=== PATIENT | male | born 1975 | race Caucasian/White ===

== ENCOUNTER 2017-10-14 20:30 | Emergency (ER) | payer OTHER ==
[~2017-10-14] VITALS: Ht 182.9 cm; Wt 115.0 kg
[~2017-10-14 20:30] MED LIST: ALBUAER19 INH; DEXT30TA7 PO; IBUP-1050 PO
[2017-10-14 20:32] VITALS: BP 152/97; PULSE 96; TEMP 36.9; O2SAT 95; Ht 182.9 cm; Wt 115.0 kg
[2017-10-14] MEDS ORDERED: ALBUTEROL HFA 8 GM INHALER INH STA (20:41)
[2017-10-14] MEDS ORDERED: VNTHFA/IN INH (20:50)
--- NOTE | 2017-10-14 23:16 | EMERGENCY ROOM VISIT NOTE ---
History Report prepared by Cristóbal: Rosanna Chawla Under the Supervision of: Dr. Johnnie Saba M.D. First contact with patient: 20:41 Chief Complaint: MEDICATION REFILL REQUEST Stated Complaint: TROUBLE BREATHING, TIGHT CHEST History of Present Illness The patient is a 42 year old male who presents to the Emergency Room with complaints of an episode of a medication refill request prior to arrival. The patient states that he has a history of asthma. He reports that he has been having asthma attacks and has used all of his inhaler. He states that he called [facility] this morning and they didn't sign the paper to send to the pharmacy so he came here. He reports that he didn't know what else to do. The patient denies feeling short of breath currently. Source of History: patient Onset: prior to arrival Position: other (global) Quality: other (medication refill) Timing: other (episode) Associated Symptoms: No SOB Review of Systems See HPI for pertinent positives & negatives. A total of 10 systems reviewed and were otherwise negative. Past Medical & Surgical Medical Problems: (1) Asthma Family History Patient reports no known family medical history. Social History Smoking Status: Current Every Day Smoker Alcohol Use: none Drug Use: none Occupation Status: employed Current/Historical Medications Scheduled Albuterol Hfa (Ventolin Hfa), 2-4 PUFFS INH Q6H Albuterol Inhaler (Ventolin Inhaler), 2 PUFFS INH Q4HR PRN Scheduled PRN Dextromethorphan-Guaifenesin (Mucinex Dm), 1 TAB PO Q12 PRN for Cough Ibuprofen (Advil), 400 MG PO Q6 PRN for Headache or Pain Allergies Coded Allergies: Latex1 -Allergic Contact Dermititis (Verified Allergy, Unknown, SWELLING AND REDNESS TO AREA TOUCHED, 06/18/15) Penicillins (Verified Allergy, Unknown, 06/18/15) Physical Exam Vital Signs Date Time Temp Pulse Resp B/P (MAP) Pulse Ox O2 Delivery O2 Flow Rate FiO2 10/14/17 20:32 36.9 96 18 152/97 95 Room Air Physical Exam GENERAL: Awake, alert, well-appearing, in no acute distress HENT: Normocephalic, atraumatic. Oropharynx unremarkable. EYES: Normal conjunctiva. Sclera non-icteric. NECK: Supple. No nuchal rigidity. FROM. No JVD. RESPIRATORY: Slight expiratory wheeze on the right. CARDIAC: Regular rate, normal rhythm. Extremities warm and well perfused. Pulses equal. ABDOMEN: Soft, non-distended. No tenderness to palpation. No rebound or guarding. No masses. RECTAL: Deferred. MUSCULOSKELETAL: Chest examination reveals no tenderness. The back is symmetrical on inspection without obvious abnormality. There is no CVA tenderness to palpation. No joint edema. LOWER EXTREMITIES: Calves are equal size bilaterally and non-tender. No edema. No discoloration. NEURO: Normal sensorium. No sensory or motor deficits noted. SKIN: No rash or jaundice noted. Medical Decision & Procedures Medications Administered Medications (Trade) Dose Ordered Sig/Jules Route Start Time Stop Time Status Last Admin Dose Admin Albuterol (Ventolin Hfa Inhaler) 2 puffs NOW STAT INH 10/14/17 20:41 10/14/17 20:43 DC 10/14/17 20:41 2 PUFFS ED Course 2044: Past medical records reviewed. The patient was evaluated in room D6. A complete history and physical examination was performed. I discussed results and treatment plan with the patient. He verbalizes agreement and understanding. The patient is ready for discharge. 2040: Ordered Albuterol 2 puffs INH. Medical Decision Differential diagnosis: Etiologies such as infections, reactive airway disease, pneumonia, pneumothorax , COPD, CHF, cardiac ischemia, pulmonary embolism, musculoskeletal, gastrointestinal, as well as others were entertained. This is a 42-year-old male who presents the emergency department because he needs his albuterol inhaler. The patient reports he is not in any acute distress and does not need a prednisone prescription. He was given an albuterol inhaler in the emergency department. He will follow-up with his primary care physician. Patient was in agreement with the treatment plan. Medication Reconcilliation Current Medication List: was personally reviewed by me Blood Pressure Screening Patient's blood pressure: Elevated blood pressure Blood pressure disposition: Referred to PCP Impression Primary Impression: Medication refill Scribe Attestation The scribe's documentation has been prepared under my direction and personally reviewed by me in its entirety. I confirm that the note above accurately reflects all work, treatment, procedures, and medical decision making performed by me. Departure Information Dispostion Home / Self-Care Prescriptions Albuterol Hfa (VENTOLIN HFA) 200 Puffs/67393 Mcg Aers 2-4 PUFFS INH Q6H, #1 INHALER Prov: Johnnie aSba MD 10/14/17 Referrals Dillan Dempsey M.D. (PCP) Forms HOME CARE DOCUMENTATION FORM, IMPORTANT VISIT INFORMATION, WORK / SCHOOL INSTRUCTIONS Patient Instructions My [facility] Additional Instructions Use inhaler twice every 6 hours You have been examined and treated today on an emergency basis only. This is not a substitute for, or an effort to provide, complete comprehensive medical care. It is impossible to recognize and treat all injuries or illnesses in a single emergency department visit. It is therefore important that you follow up closely with Dr Dempsey. Call as soon as possible for an appointment. Thank you for your time and consideration. I look forward to speaking with you again soon. Please don't hesitate to call us if you have any questions.
== END 2017-10-14 20:57 | disposition home or self-care (01) ==
LOC: C.EDB 20:31 → C.EDD 20:57
DX: Z76.0 Encounter for issue of repeat prescription (principal); J45.909 Unspecified asthma, uncomplicated; R03.0 Elevated blood-pressure reading, without diagnosis of hypertension; F17.200 Nicotine dependence, unspecified, uncomplicated; Z91.040 Latex allergy status; Z88.0 Allergy status to penicillin

== ENCOUNTER 2022-10-20 16:32 | Inpatient (IN) ==
[2022-10-20] MEDS ORDERED: SODIUM CHLORIDE 0.9% 1000ML 1,000 ML IV STA (16:57)
[2022-10-20] MEDS ORDERED: KETOROLAC TROMETHAMINE 15 MG/ML VIAL IV STA (16:57)
[2022-10-20] MEDS ORDERED: ONDANSETRON INJ 2 MG/ML 2 ML VIAL IV STA (16:57)
--- NOTE | 2022-10-20 16:57 | ED Triage Note ---
Date of Service October 20, 2022 History of Present Illness This patient was briefly evaluated while in triage. An abbreviated physical exam was performed. This patient is a 47-year-old Male who presents to the ED for evaluation of constipation. Over the weekend he developed a "bout" of constipation with no BM for 3 days. He started taking a laxative yesterday with minimal improvement of the constipation. Now having a lot of lower abdominal pain especially in the LLQ that is worse with standing up or with movement. Also having dizziness and sometimes nausea. Rates his pain as 7/10. Denies hematochezia, melena. Typically moves his bowels well. No previous history of diverticulitis. History of an umbilical hernia. Physical Exam GENERAL: Non-toxic and in no acute distress. HEENT: Pupils equal. No obvious scleral icterus. HEART: Regular rate and rhythm. LUNGS: Clear to auscultation. No accessory muscle use. ABDOMEN: Tender to palpation in the lower abdomen, worse in the left lower quadrant. Large umbilical hernia without incarceration or strangulation. No rigidity. NEURO: Alert and oriented. No obvious neurological deficits on quick neuro exam. Initial orders for labs and / or imaging were placed and patient was placed in the waiting area until a bed is available. Please see further documentation for the full ED course.
[2022-10-20 17:51] LABS: Basophils % (auto) 0.5 %; Eosinophils # (auto) 0.04 K/uL (0-0.50); Eosinophils % (auto) 0.2 %; Hemoglobin 15.1 g/dl (14.0-18.0); Immature Granulocytes # (auto) 0.14 K/uL (0.01-0.20); Immature Granulocytes % (auto) 0.7 %; Lymphocytes # (auto) 1.58 K/uL (1.2-3.4); Lymphocytes % (auto) 7.8 %; Mean Corpuscular Hemoglobin 33.6 pg (25.0-34.0); Mean Corpuscular Hgb Conc 35.1 g/dL (32.0-36.0); Mean Corpuscular Volume 95.6 fL (80.0-100.0); Mean Platelet Volume 10.2 fL (9.4-12.4); Monocytes # (auto) 2.06 K/uL (0.11-0.59); Monocytes % (auto) 10.2 %; Neutrophils # (auto) 16.22 K/uL (1.40-6.50); Neutrophils % (auto) 80.6 %; Platelet Count 273 K/uL (130-400); RDW Coefficient of Variation 13.9 % (11.5-14.5); RDW Standard Deviation 48.8 fL (36.4-46.3); White Blood Count 20.14 K/ul (4.8-10.8)
[2022-10-20 18:00] LABS: Albumin Level 3.8 gm/dl (3.4-5.0); BUN Creatinine Ratio 11.5 (10-20); Bilirubin,Total 0.7 mg/dl (0.2-1.0); Creatinine Clr Calc Pharmacy 125.6 ml/min; Est GFR (Non-African American) 86.3 ml/min; Globulin 3.8 gm/dl (2.5-4.0); Potassium 3.7 mmol/L (3.5-5.1); Total Protein 7.6 gm/dl (6.0-8.3)
[2022-10-20] MEDS ORDERED: OPTIRAY 320 100ml IV ONE (19:00)
[2022-10-20] MEDS ORDERED: CIPROFLOXACIN / D5W 400 MG/200 ML BAG IV STA (19:06)
[2022-10-20] MEDS ORDERED: metroNIDAZOLE 500 MG/100 ML BAG IV STA (19:06)
[2022-10-20] MEDS ORDERED: HYDROmorphone INJ 0.5 MG/0.5 ML SYR IV STA (19:10)
[2022-10-20] MEDS ORDERED: ONDANSETRON INJ 2 MG/ML 2 ML VIAL ONE (19:14)
[2022-10-20 19:43] LABS: Appearance Urine Cloudy (Clear); Bacteria Urine Automated Negative (Negative); Blood Urine Negative (Negative); Color Urine Orange; Epithelial Cell Urine Auto 20-30 /lpf (0-5); Glucose Urine UA Negative (Negative); Ketones Urine 1+ (Negative); Leukocyte Esterase Urine Trace (Negative); Nitrite Urine Positive (Negative); Protein Urine 2+ (Negative); RBC Urine Automated 0-4 /hpf (0-4); Specific Gravity Urine 1.038 (1.000-1.030); Urobilinogen Urine Negative (Negative); pH Urine 5.5 (4.5-7.5)
[2022-10-20 19:44] LABS: Bilirubin Urine 1+ (Negative)
--- NOTE | 2022-10-20 19:50 | CT Scan Report ---
Exam(s): CT ABDOMEN + PELVIS With Contrast IV Amt: 85ml EXAM: CT Abdomen and Pelvis With Intravenous Contrast CLINICAL HISTORY: Reason for exam: LLQ, change in BMs, umbilical hernia. TECHNIQUE: Axial computed tomography images of the abdomen and pelvis with intravenous contrast. CTDI is 28.14 mGy and DLP is 1513.9 mGy-cm. Automated exposure control was utilized for the study. A dose lowering technique was utilized adhering to the principles of ALARA. CONTRAST: Patient received 85ml of IV contrast COMPARISON: No relevant prior studies available. FINDINGS: Mediastinum: Small hiatal hernia. ABDOMEN: Liver: Fatty liver. Gallbladder and bile ducts: No radiodense stones. No biliary ductal dilation. Pancreas: Unremarkable. Spleen: Unremarkable. Adrenals: Unremarkable. Kidneys and ureters: No renal or ureteral calculi. No obstructive changes. Stomach and bowel: Diverticulitis at the junction of the descending- sigmoid colon with adjacent inflammatory changes and loculated extraluminal air. Colonic diverticula. PELVIS: Appendix: Unremarkable appendix. Bladder: Unremarkable. Reproductive: Unremarkable. ABDOMEN and PELVIS: Intraperitoneal space: See above. Bones/joints: No acute fracture. Soft tissues: Fat-containing umbilical hernia. Vasculature: No acute process. Lymph nodes: No bulky adenopathy. IMPRESSION: Diverticulitis at the junction of the descending-sigmoid colon with adjacent inflammatory changes and loculated extraluminal air. Findings consistent with perforated colonic diverticulitis. Communications: Call Doctor Other Electronically signed by: Roslyn Davis M.D. 10/20/22 19:49 PM
[2022-10-20] MEDS ORDERED: NSS + 20MEQ KCL 20 MEQ/1,000 ML BAG IV STA (21:09)
--- NOTE | 2022-10-20 21:18 | History & Physical Report ---
Date of Service October 20, 2022 Assessment & Plan (1) Diverticulitis large intestine: (2) HTN (hypertension): (3) Asthma: (4) Depression: (5) Tobacco use disorder: Plan This is a 47-year-old male with PMH of hypertension, depression, tobacco use, asthma, obesity and other medical problems listed below who presents with abdominal pain over the past 3 days and was found to have acute diverticulitis of the large intestine. Please see Dr. Mancilla's addendum for assessment and plan details. History of Present Illness Chief Complaint: Abdominal pain Primary Care Provider: Dillan Dempsey MD This is a 47-year-old male with PMH of hypertension, depression, tobacco use, asthma, obesity and other medical problems listed below who presents with abdominal pain over the past 3 days. Developed lower colicky abdominal pain on Wednesday this weekend that was worse with any type of movement or exertion. Remains pretty comfortable at rest. Thought he may be constipated, so he took a lot of laxatives on Wednesday and had multiple bowel movements, but the lower abdominal discomfort remained. Attempted to go to work today but pain was too severe and came to ED for further evaluation this evening. Has also been experiencing intermittent bouts of dizziness that started around the same time as the abdominal pain. Denies any headache or vertigo. Denies any fever, chills, nausea or vomiting. No dysuria. No history of diverticulitis in the past. Smokes 1 pack/day, drinks alcohol most nights but denies history of wi thdrawal issues in the past. Allergies Allergy/AdvReac Type Severity Reaction Status Date / Time latex Allergy Unknown SWELLING Verified 11/26/17 13:55 AND REDNESS TO AREA TOUCHED Penicillins Allergy Unknown Verified 11/26/17 13:55 Home Medications Medication Instructions Recorded Confirmed Type albuterol sulfate 90 mcg/actuation 2 puff inhalation QID PRN 10/20/22 10/20/22 History aerosol inhaler Shortness Of Breath Or Wheezing losartan 50 mg tablet 50 mg PO QAM 10/20/22 10/20/22 History Past Med/Surg History Medical History (Updated 10/20/22 @ 21:53 by Dolly Pineda PA-C) Asthma Depression HTN (hypertension) Tobacco use disorder Surgical History No significant past surgical history Family History Other Diabetes Heart disease Social History (Updated 10/20/22 @ 21:49 by Dolly Pineda PA-C) Smoking Status: Current every day smoker Tobacco Type: Cigarettes packs per day: 1; Cigarettes Per Day: 1 ppd X 30 years; Tobacco Cessation Education Requested by Patient: No (declines) Hx Alcohol Use: Yes Alcohol type: beer Alcohol Intake Frequency: 4 or More x per/Week Hx Substance Use: Yes Preferred Language: [employer] Observer Required: No Beliefs That Will Affect Care: None marital status: Current Living Situation: Family current occupational status: employed Feels Safe at Home: Yes Safety Concerns: Feels Safe At This Time Assistive Devices: Glasses Assistive Devices Comment: rading glasses Review of Systems Review of Systems: At least ten systems reviewed and negative except as noted in the HPI. Physical Exam Physical Exam: General Appearance: WD/WN, vitals as above, NAD, sitting up in bed, pleasant, obese, appears anxious Head: normocephalic, atraumatic Eyes: normal inspection, PERRL, conjunctivae normal, anicteric sclerae ENT: external ear and nose normal, oropharynx normal Neck: normal visual inspection, trachea midline, no thyromegaly Respiratory: normal respiratory effort, lungs clear to auscultation, no wheeze, rales, rhonchi. No accessory muscle use Cardiovascular: tachycardic rate, regular rhythm, no murmur appreciated, normal peripheral pulses, no BLE edema Chest: normal inspection of chest Abdomen/GI: normal bowel sounds, soft, TTP of LLQ, umbilical hernia, no hepatosplenomegaly Extremities/Musculoskeletal: no cyanosis or clubbing, extremities motor strength 5/5 Neurologic: PERRL, EOMI, accommodation nl, no face palsy, no dysarthria, CN's II-XI intact bilaterally and moves all extremities Psychiatric: A+Ox3, euthymic affect Skin: no rashes, normal color, warm/dry Results & Data Results & Data Vital Signs (Past 12 Hours) Vital Signs Temp Pulse Resp BP Pulse Ox O2 Del Method 10/20/22 19:32 98 H 10/20/22 16:54 37.5 C 122 H 18 127/82 95 Room Air Laboratory Results Short CBC 10/20/22 Range/Units 17:25 WBC 20.14 H (4.8-10.8) K/ul Hgb 15.1 (14.0-18.0) g/dl Hct 43.0 (42.0-52.0) % Plt Count 273 (130-400) K/uL BMP 10/20/22 17:25 Sodium 133 L Potassium 3.7 Chloride 101 Carbon Dioxide 24 BUN 12 Creatinine 1.04 Glucose 115 H Calcium 9.0 Liver Function 10/20/22 Range/Units 17:25 Total Bilirubin 0.7 (0.2-1.0) mg/dl AST 23 (13-39) U/L ALT 32 (7-52) U/L Alkaline Phosphatase 90 (34-104) U/L Albumin 3.8 (3.4-5.0) gm/dl Urine 10/20/22 Range/Units 19:29 Urine Color Kane Urine Appearance Cloudy A (Clear) Urine pH 5.5 (4.5-7.5) Ur Specific Fonda 1.038 H (1.000-1.030) Urine Protein 2+ H (Negative) Urine Glucose (UA) Negative (Negative) Diagnostic Findings Abdomen/Pelvis CT 10/20/22 16:57 CR Exam(s): CT ABDOMEN + PELVIS With Contrast IV Amt: 85ml EXAM: CT Abdomen and Pelvis With Intravenous Contrast CLINICAL HISTORY: Reason for exam: LLQ, change in BMs, umbilical hernia. TECHNIQUE: Axial computed tomography images of the abdomen and pelvis with intravenous contrast. CTDI is 28.14 mGy and DLP is 1513.9 mGy-cm. Automated exposure control was utilized for the study. A dose lowering technique was utilized adhering to the principles of ALARA. CONTRAST: Patient received 85ml of IV contrast COMPARISON: No relevant prior studies available. FINDINGS: Mediastinum: Small hiatal hernia. ABDOMEN: Liver: Fatty liver. Gallbladder and bile ducts: No radiodense stones. No biliary ductal dilation. Pancreas: Unremarkable. Spleen: Unremarkable. Adrenals: Unremarkable. Kidneys and ureters: No renal or ureteral calculi. No obstructive changes. Stomach and bowel: Diverticulitis at the junction of the descending- sigmoid colon with adjacent inflammatory changes and loculated extraluminal air. Colonic diverticula. PELVIS: Appendix: Unremarkable appendix. Bladder: Unremarkable. Reproductive: Unremarkable. ABDOMEN and PELVIS: Intraperitoneal space: See above. Bones/joints: No acute fracture. Soft tissues: Fat-containing umbilical hernia. Vasculature: No acute process. Lymph nodes: No bulky adenopathy. IMPRESSION: Diverticulitis at the junction of the descending-sigmoid colon with adjacent inflammatory changes and loculated extraluminal air. Findings consistent with perforated colonic diverticulitis. Communications: Call Doctor Other Electronically signed by: Roslyn Davis M.D. 10/20/22 19:49 PM Supervising Physician Co-Signing Physician Notes IM ATTENDING : Patient seen and examined. History obtained from patient and records. Preceding documentation by Ms. Dolly Pineda PA-C reviewed. FINAL ASSESSMENT AND PLAN as follows : Sepsis secondary to complicated diverticulitis Hypertension, BP on the lower side Possible alcohol abuse, patient admits to occasionally drinking more than he should Mood disorder, stable off maintenance medications Hyperglycemia rule out DM Ongoing tobacco abuse Medical telemetry CS, Ciprofloxacin and Flagyl (Patient asked to be instructed to not consume alcohol if he is to be discharged home on Flagyl.) General surgery consult Re: Complicated diverticulitis (Patient already seen by Dr. Hart at the ER who recommends clear liquid diet and antibiotics.) DT precautions, initiate RODO S if with signs of alcohol withdrawal Check hemoglobin A1c Nicotine patch DVT prophylaxis. Lovenox subcu Full code Text document was generated using [employer] voice recognition software. It may contain grammatical or spelling errors. Kindly contact undersigned for clarification of any documentation item in question.
[2022-10-20 21:38] LABS: Magnesium 2.6 mg/dl (1.7-2.4)
[2022-10-20] MEDS ORDERED: ALBUTEROL HFA 8 GM INHALER INH PRN (21:46)
[2022-10-20] MEDS ORDERED: NICOTINE 21 MG/24 HR TDSY TD STA (21:47)
--- NOTE | 2022-10-20 21:47 | Surgery Consultation ---
Date of Consultation October 20, 2022 Assessment & Plan (1) HTN (hypertension): (2) Diverticulitis large intestine: Plan 47-year-old gentleman with diverticulitis with what appears to be contained perforation on CT scan. His white count is elevated however he does not have fevers or chills. He does not have any signs of peritonitis. His pain is actually improving. We will admit him to the hospital and place him on IV antibiotics. He will be maintained on a clear liquid diet for now. I had a long discussion with him about diverticulitis. If he worsens he may require an operation. If he were to fail to improve after few days of IV antibiotics, he will need to be rescanned for potential abscess development. We will continue to follow while he is in the hospital. History of Present Illness Reason for Consultation: Diverticulitis with perforation Requesting Physician: Huang Chance MD Attending Physician: Huang Chance MD History of Present Illness 47-year-old gentleman presents with 2-day history of worsening lower abdominal pain. He has never had pain like this in the past. He did have some dizzy spells with the pain. He denies nausea or vomiting. He denies fevers or chills. He has never had a colonoscopy. He denies any other complaints. He has never had an abdominal operation. Allergies Allergy/AdvReac Type Severity Reaction Status Date / Time latex Allergy Unknown SWELLING Verified 11/26/17 13:55 AND REDNESS TO AREA TOUCHED Penicillins Allergy Unknown Verified 11/26/17 13:55 Home Medications Medication Instructions Recorded Confirmed Type albuterol sulfate 90 mcg/actuation 2 puff inhalation QID PRN 10/20/22 10/20/22 History aerosol inhaler Shortness Of Breath Or Wheezing losartan 50 mg tablet 50 mg PO QAM 10/20/22 10/20/22 History Patient History Medical History Asthma Depression HTN (hypertension) Superficial thrombophlebitis Varicose veins Surgical History No significant past surgical history Family History Other Diabetes Heart disease Social History Smoking Status: Current every day smoker Tobacco Type: Cigarettes packs per day: 1; Hx Alcohol Use: Yes Alcohol Intake Frequency: 4 or More x per/Week Preferred Language: Irish marital status: current occupational status: employed Feels Safe at Home: Yes Review of Systems Review of Systems: All systems reviewed & are unremarkable except as noted in HPI & below Physical Exam Constitutional: WD/WN, vitals as above Eyes: PERRL, conjunctivae normal, anicteric sclerae Neck: trachea midline, no thyromegaly Respiratory: normal respiratory effort; no respiratory distress and no labored breathing Cardiovascular: Rate/Rhythm: regular rate and regular rhythm Gastrointestinal (Abdomen): Inspection/Auscultation: abdomen normal to inspection; abdomen not distended Percussion/Palpation: + abdomen tender (LLQ), abdomen soft and + hernia (Umbilical, nontender); no guarding and abdomen not rigid Skin: no rashes, warm and dry Psychiatric: A+Ox3, euthymic affect Results & Data Vital Signs (Past 12 Hours) Vital Signs Temp Pulse Resp BP Pulse Ox O2 Del Method 10/20/22 19:32 98 H 10/20/22 16:54 37.5 C 122 H 18 127/82 95 Room Air Laboratory Results 10/20/22 10/20/22 10/20/22 Range/Units 19:29 17:25 17:25 WBC (4.8-10.8) K/ul RBC (4.70-6.10) M/uL Hgb (14.0-18.0) g/dl Hct (42.0-52.0) % MCV (80.0-100.0) fL MCH (25.0-34.0) pg MCHC (32.0-36.0) g/dL RDW Std Deviation (36.4-46.3) fL RDW Coeff of Gerard (11.5-14.5) % Plt Count (130-400) K/uL MPV (9.4-12.4) fL Immature Gran % (Auto) % Neut % (Auto) % Lymph % (Auto) % [place] % (Auto) % Eos % (Auto) % Baso % (Auto) % Neut # (Auto) (1.40-6.50) K/uL Lymph # (Auto) (1.2-3.4) K/uL [place] # (Auto) (0.11-0.59) K/uL Eos # (Auto) (0-0.50) K/uL Baso # (Auto) (0-0.2) K/uL Immature Gran # (Auto) (0.01-0.20) K/uL Sodium 133 L (136-145) mmol/L Potassium 3.7 (3.5-5.1) mmol/L Chloride 101 (98-107) mmol/L Carbon Dioxide 24 (21-32) mmol/L Anion Gap 8 (3-11) BUN 12 (6-23) mg/dl Creatinine 1.04 (0.6-1.4) mg/dl Est Cr Clr Drug Dosing 125.6 ml/min Est GFR ( Amer) 100.0 ml/min Est GFR (Non-Af Amer) 86.3 ml/min BUN/Creatinine Ratio 11.5 (10-20) Glucose 115 H (70-99(Fasting)) mg/dl Estimat Average Glucose Pending Hemoglobin A1c Pending Calcium 9.0 (8.6-10.3) mg/dl Magnesium 2.6 H (1.7-2.4) mg/dl Total Bilirubin 0.7 (0.2-1.0) mg/dl AST 23 (13-39) U/L ALT 32 (7-52) U/L Alkaline Phosphatase 90 (34-104) U/L Total Protein 7.6 (6.0-8.3) gm/dl Albumin 3.8 (3.4-5.0) gm/dl Globulin 3.8 (2.5-4.0) gm/dl Albumin/Globulin Ratio 1.0 (0.9-2) Lipase 30 (11-82) U/L Urine Color [place] Urine Appearance Cloudy A (Clear) Urine pH 5.5 (4.5-7.5) Ur Specific [place] 1.038 H (1.000-1.030) Urine Protein 2+ H (Negative) Urine Glucose (UA) Negative (Negative) Urine Ketones 1+ H (Negative) Urine Blood Negative (Negative) Urine Nitrite Positive A (Negative) Urine Bilirubin 1+ H (Negative) Urine Urobilinogen Negative (Negative) Ur Leukocyte Esterase Trace H (Negative) Urine WBC (Auto) 1-5 (0-5) /hpf Urine RBC (Auto) 0-4 (0-4) /hpf U Hyaline Cast (Auto) 10-30 H (0-5) /lpf U Epithel Cells (Auto) 20-30 H (0-5) /lpf Urine Bacteria (Auto) Negative (Negative) 10/20/22 Range/Units 17:25 WBC 20.14 H (4.8-10.8) K/ul RBC 4.50 L (4.70-6.10) M/uL Hgb 15.1 (14.0-18.0) g/dl Hct 43.0 (42.0-52.0) % MCV 95.6 (80.0-100.0) fL MCH 33.6 (25.0-34.0) pg MCHC 35.1 (32.0-36.0) g/dL RDW Std Deviation 48.8 H (36.4-46.3) fL RDW Coeff of Gerard 13.9 (11.5-14.5) % Plt Count 273 (130-400) K/uL MPV 10.2 (9.4-12.4) fL Immature Gran % (Auto) 0.7 % Neut % (Auto) 80.6 % Lymph % (Auto) 7.8 % [place] % (Auto) 10.2 % Eos % (Auto) 0.2 % Baso % (Auto) 0.5 % Neut # (Auto) 16.22 H (1.40-6.50) K/uL Lymph # (Auto) 1.58 (1.2-3.4) K/uL [place] # (Auto) 2.06 H (0.11-0.59) K/uL Eos # (Auto) 0.04 (0-0.50) K/uL Baso # (Auto) 0.10 (0-0.2) K/uL Immature Gran # (Auto) 0.14 (0.01-0.20) K/uL Sodium (136-145) mmol/L Potassium (3.5-5.1) mmol/L Chloride (98-107) mmol/L Carbon Dioxide (21-32) mmol/L Anion Gap (3-11) BUN (6-23) mg/dl Creatinine (0.6-1.4) mg/dl Est Cr Clr Drug Dosing ml/min Est GFR ( Amer) ml/min Est GFR (Non-Af Amer) ml/min BUN/Creatinine Ratio (10-20) Glucose (70-99(Fasting)) mg/dl Estimat Average Glucose Hemoglobin A1c Calcium (8.6-10.3) mg/dl Magnesium (1.7-2.4) mg/dl Total Bilirubin (0.2-1.0) mg/dl AST (13-39) U/L ALT (7-52) U/L Alkaline Phosphatase (34-104) U/L Total Protein (6.0-8.3) gm/dl Albumin (3.4-5.0) gm/dl Globulin (2.5-4.0) gm/dl Albumin/Globulin Ratio (0.9-2) Lipase (11-82) U/L Urine Color Urine Appearance (Clear) Urine pH (4.5-7.5) Ur Specific [place] (1.000-1.030) Urine Protein (Negative) Urine Glucose (UA) (Negative) Urine Ketones (Negative) Urine Blood (Negative) Urine Nitrite (Negative) Urine Bilirubin (Negative) Urine Urobilinogen (Negative) Ur Leukocyte Esterase (Negative) Urine WBC (Auto) (0-5) /hpf Urine RBC (Auto) (0-4) /hpf U Hyaline Cast (Auto) (0-5) /lpf U Epithel Cells (Auto) (0-5) /lpf Urine Bacteria (Auto) (Negative) Diagnostic Findings Exam(s): CT ABDOMEN + PELVIS With Contrast IV Amt: 85ml EXAM: CT Abdomen and Pelvis With Intravenous Contrast CLINICAL HISTORY: Reason for exam: LLQ, change in BMs, umbilical hernia. TECHNIQUE: Axial computed tomography images of the abdomen and pelvis with intravenous contrast. CTDI is 28.14 mGy and DLP is 1513.9 mGy-cm. Automated exposure control was utilized for the study. A dose lowering technique was utilized adhering to the principles of ALARA. CONTRAST: Patient received 85ml of IV contrast COMPARISON: No relevant prior studies available. FINDINGS: Mediastinum: Small hiatal hernia. ABDOMEN: Liver: Fatty liver. Gallbladder and bile ducts: No radiodense stones. No biliary ductal dilation. Pancreas: Unremarkable. Spleen: Unremarkable. Adrenals: Unremarkable. Kidneys and ureters: No renal or ureteral calculi. No obstructive changes. Stomach and bowel: Diverticulitis at the junction of the descending- sigmoid colon with adjacent inflammatory changes and loculated extraluminal air. Colonic diverticula. PELVIS: Appendix: Unremarkable appendix. Bladder: Unremarkable. Reproductive: Unremarkable. ABDOMEN and PELVIS: Intraperitoneal space: See above. Bones/joints: No acute fracture. Soft tissues: Fat-containing umbilical hernia. Vasculature: No acute process. Lymph nodes: No bulky adenopathy. IMPRESSION: Diverticulitis at the junction of the descending-sigmoid colon with adjacent inflammatory changes and loculated extraluminal air. Findings consistent with perforated colonic diverticulitis.
[2022-10-20] MEDS ORDERED: THIAMINE HCL 100 MG in SYRINGE 9 ML IV STA (21:51)
[2022-10-20] MEDS ORDERED: KETOROLAC TROMETHAMINE 15 MG/ML VIAL IV PRN (22:09)
[2022-10-20] MEDS ORDERED: PROMETHAZINE HCL 12.5 MG in SODIUM CHLORIDE 0.9% 50 ML IV PRN (22:09)
[2022-10-20] MEDS ORDERED: LORazepam 2 MG/1 ML VIAL IV PRN (22:09)
[2022-10-20] MEDS ORDERED: oxyCODONE HCL IR 5 MG TAB (IMMEDIATE RELEASE) PO PRN (22:09)
--- NOTE | 2022-10-21 01:21 | Emergency Department Note ---
Impression & Plan Diverticulitis large intestine ED Provider Note CHIEF COMPLAINT: Left-sided abdominal pain HISTORY OF PRESENT ILLNESS: This 47-year-old male patient with past medical history of hypertension, asthma and tobacco use presents to the emergency department with complaints of left sided lower abdominal pain. The patient states it began several days ago. Initially he was pretty confused but after speaking to his family felt that this may be related to constipation. He does not have a longstanding history of constipation but states he did not have a bowel movement for 1 to 2 days. He took a home stool softeners and was able to pass a small amount of stool. He denies any significant diarrhea. He has not had blood in his stools. Patient denies any fevers, chills, vomiting. REVIEW OF SYSTEMS: A review of systems was performed with positives and pertinent negatives listed in the history of present illness. 10 systems were reviewed and are otherwise negative. ALLERGIES: see below MEDICATIONS: see below PMH: see below SOCIAL HISTORY: see below DDx: Diverticulitis, appendicitis, obstruction, perforation, intra-abdominal mass, aortic injury, kidney stone, UTI, among others PHYSICAL EXAM: Vital signs reviewed. General: Well-appearing 47-year-old male, in no significant distress. HEENT: No scleral icterus, PERRLA, neck supple. Atraumatic. Cardiovascular: Regular rate and rhythm, no extra sounds. Pulmonary: Clear to auscultation bilaterally, normal work of breathing. Abdomen: Soft, obese, tender to palpation in the left lower quadrant with guarding, minimally distended, positive bowel sounds. Musculoskeletal: Atraumatic, no peripheral edema. Neurologic: Patient awake alert and oriented x 3, speech is clear Skin: Warm, dry, no rash EMERGENCY DEPARTMENT COURSE/MDM: This patient was evaluated and appeared to be in no significant distress. IV access was obtained and laboratory work was drawn. Patient was hydrated with normal saline solution, given IV Dilaudid and Zofran for his discomfort. CT imaging of the abdomen pelvis was performed and reveals evidence of diverticulitis. Per radiology there is evidence of radiation with an extraluminal air collection but no abscess. I did discuss the case with Dr. Hart of general surgery who has reviewed the imaging and does not feel that there is a perforation. Patient's laboratory work reveals a WBC o f 20,000. He was medicated with IV Zosyn 4.5 g. Patient was discussed with the hospitalist service who will evaluate the patient for admission and further management. Patient has expressed an understanding of the plan and agrees. MONITORING: An order for cardiac monitoring was placed and the patient is noted to be in a normal sinus rhythm at 98 beats per minute. RADIOLOGY: CT imaging of the abdomen pelvis to my interpretation reveals evidence of acute diverticulitis in the left lower quadrant, questionable perforation. Otherwise defer to radiology. DISPOSITION: Admission Past Med/Surg History Medical History Asthma Depression HTN (hypertension) Tobacco use disorder Surgical History No significant past surgical history Family History Other Diabetes Heart disease Social History Smoking Status: Current every day smoker Tobacco Type: Cigarettes packs per day: 1; Cigarettes Per Day: 1 ppd X 30 years; Tobacco Cessation Education Requested by Patient: No (declines) Hx Alcohol Use: Yes Alcohol type: beer Alcohol Intake Frequency: 4 or More x per/Week Hx Substance Use: Yes Preferred Language: Swedish Business Assistant Required: No Beliefs That Will Affect Care: None marital status: Current Living Situation: Family current occupational status: employed Feels Safe at Home: Yes Safety Concerns: Feels Safe At This Time Assistive Devices: Glasses Assistive Devices Comment: rading glasses Allergies Allergies Allergy/AdvReac Type Severity Reaction Status Date / Time latex Allergy Unknown SWELLING Verified 11/26/17 13:55 AND REDNESS TO AREA TOUCHED Penicillins Allergy Unknown Verified 11/26/17 13:55 Home Meds Home Medications Medication Instructions Recorded Confirmed albuterol sulfate 90 mcg/actuation 2 puff inhalation QID PRN 10/20/22 10/20/22 aerosol inhaler Shortness Of Breath Or Wheezing losartan 50 mg tablet 50 mg PO QAM 10/20/22 10/20/22 Results & Data (ED) Vital Signs Vital Signs - 24 hr 10/20/22 16:54 10/20/22 19:32 10/20/22 19:31 Temperature 37.5 C Temperature Source Temporal Artery Scan Pulse Rate 122 H 98 H 98 H Pulse Rate [Apical] Pulse Rate from SpO2 Sensor 96 H Pulse Rhythm [Apical] Pulse Strength [Apical] Respiratory Rate 18 12 Respiratory Effort / Characteristics Non-Labored Respiratory Depth Normal Blood Pressure 127/82 Blood Pressure [Right Arm] Blood Pressure Mean 97 Blood Pressure Mean [Right Arm] Pulse Oximetry 95 94 Oxygen Delivery Method Room Air Sepsis Recent Fever Within 48 Hours No Sepsis New/Unexplained Change in Mental Status No Sepsis Action Taken by Nursing No Action Required 10/20/22 20:00 10/20/22 20:00 10/20/22 20:30 Temperature Temperature Source Pulse Rate 96 H Pulse Rate [Apical] Pulse Rate from SpO2 Sensor 96 H Pulse Rhythm [Apical] Pulse Strength [Apical] Respiratory Rate 17 Respiratory Effort / Characteristics Respiratory Depth Blood Pressure 123/72 110/67 Blood Pressure [Right Arm] Blood Pressure Mean 89 81 Blood Pressure Mean [Right Arm] Pulse Oximetry Oxygen Delivery Method Sepsis Recent Fever Within 48 Hours Sepsis New/Unexplained Change in Mental Status Sepsis Action Taken by Nursing 10/20/22 20:30 10/20/22 21:00 10/20/22 21:00 Temperature Temperature Source Pulse Rate 97 H 96 H Pulse Rate [Apical] Pulse Rate from SpO2 Sensor 97 H 95 H Pulse Rhythm [Apical] Pulse Strength [Apical] Respiratory Rate 14 19 Respiratory Effort / Characteristics Respiratory Depth Blood Pressure 117/70 Blood Pressure [Right Arm] Blood Pressure Mean 85 Blood Pressure Mean [Right Arm] Pulse Oximetry 94 92 Oxygen Delivery Method Sepsis Recent Fever Within 48 Hours Sepsis New/Unexplained Change in Mental Status Sepsis Action Taken by Nursing 10/20/22 21:30 10/20/22 21:30 10/20/22 22:00 Temperature Temperature Source Pulse Rate 100 H Pulse Rate [Apical] Pulse Rate from SpO2 Sensor 98 H Pulse Rhythm [Apical] Pulse Strength [Apical] Respiratory Rate 27 H Respiratory Effort / Characteristics Respiratory Depth Blood Pressure 108/81 94/75 L Blood Pressure [Right Arm] Blood Pressure Mean 90 81 Blood Pressure Mean [Right Arm] Pulse Oximetry 93 Oxygen Delivery Method Sepsis Recent Fever Within 48 Hours Sepsis New/Unexplained Change in Mental Status Sepsis Action Taken by Nursing 10/20/22 22:00 10/20/22 22:30 10/20/22 22:31 Temperature Temperature Source Pulse Rate 94 H 94 H Pulse Rate [Apical] Pulse Rate from SpO2 Sensor 93 H 94 H Pulse Rhythm [Apical] Pulse Strength [Apical] Respiratory Rate 14 20 Respiratory Effort / Characteristics Respiratory Depth Blood Pressure 111/77 Blood Pressure [Right Arm] Blood Pressure Mean 88 Blood Pressure Mean [Right Arm] Pulse Oximetry 93 94 Oxygen Delivery Method Room Air Sepsis Recent Fever Within 48 Hours Sepsis New/Unexplained Change in Mental Status Sepsis Action Taken by Nursing 10/20/22 22:31 10/20/22 23:21 10/20/22 23:29 Temperature Temperature Source Pulse Rate 94 H 95 H Pulse Rate [Apical] 90 Pulse Rate from SpO2 Sensor 94 H Pulse Rhythm [Apical] Regular Pulse Strength [Apical] Normal Respiratory Rate 22 16 Respiratory Effort / Characteristics Non-Labored Spontaneous Respiratory Depth Normal Blood Pressure Blood Pressure [Right Arm] 117/77 Blood Pressure Mean Blood Pressure Mean [Right Arm] 90 Pulse Oximetry 94 93 Oxygen Delivery Method Room Air Room Air Sepsis Recent Fever Within 48 Hours Sepsis New/Unexplained Change in Mental Status Sepsis Action Taken by [facility] Medications Current Medication List: was personally reviewed by me Laboratory Data Attestation: I reviewed the patient's lab results. 10/20/22 17:25 10/20/22 17:25 Lab Results 10/20/22 10/20/22 10/20/22 Range/Units 17:25 17:25 17:25 WBC 20.14 H (4.8-10.8) K/ul RBC 4.50 L (4.70-6.10) M/uL Hgb 15.1 (14.0-18.0) g/dl Hct 43.0 (42.0-52.0) % MCV 95.6 (80.0-100.0) fL MCH 33.6 (25.0-34.0) pg MCHC 35.1 (32.0-36.0) g/dL RDW Std Deviation 48.8 H (36.4-46.3) fL RDW Coeff of Gerard 13.9 (11.5-14.5) % Plt Count 273 (130-400) K/uL MPV 10.2 (9.4-12.4) fL Immature Gran % (Auto) 0.7 % Neut % (Auto) 80.6 % Lymph % (Auto) 7.8 % Hickman % (Auto) 10.2 % Eos % (Auto) 0.2 % Baso % (Auto) 0.5 % Neut # (Auto) 16.22 H (1.40-6.50) K/uL Lymph # (Auto) 1.58 (1.2-3.4) K/uL Hickman # (Auto) 2.06 H (0.11-0.59) K/uL Eos # (Auto) 0.04 (0-0.50) K/uL Baso # (Auto) 0.10 (0-0.2) K/uL Immature Gran # (Auto) 0.14 (0.01-0.20) K/uL Sodium 133 L (136-145) mmol/L Potassium 3.7 (3.5-5.1) mmol/L Chloride 101 (98-107) mmol/L Carbon Dioxide 24 (21-32) mmol/L Anion Gap 8 (3-11) BUN 12 (6-23) mg/dl Creatinine 1.04 (0.6-1.4) mg/dl Est Cr Clr Drug Dosing 125.6 ml/min Est GFR ( Amer) 100.0 ml/min Est GFR (Non-Af Amer) 86.3 ml/min BUN/Creatinine Ratio 11.5 (10-20) Glucose 115 H (70-99(Fasting)) mg/dl Estimat Average Glucose 123 mg/dl Hemoglobin A1c 5.9 H (4.5-5.6) % Calcium 9.0 (8.6-10.3) mg/dl Magnesium 2.6 H (1.7-2.4) mg/dl Total Bilirubin 0.7 (0.2-1.0) mg/dl AST 23 (13-39) U/L ALT 32 (7-52) U/L Alkaline Phosphatase 90 (34-104) U/L Total Protein 7.6 (6.0-8.3) gm/dl Albumin 3.8 (3.4-5.0) gm/dl Globulin 3.8 (2.5-4.0) gm/dl Albumin/Globulin Ratio 1.0 (0.9-2) Lipase 30 (11-82) U/L Urine Color Urine Appearance (Clear) Urine pH (4.5-7.5) Ur Specific Line [place] (1.000-1.030) Urine Protein (Negative) Urine Glucose (UA) (Negative) Urine Ketones (Negative) Urine Blood (Negative) Urine Nitrite (Negative) Urine Bilirubin (Negative) Urine Urobilinogen (Negative) Ur Leukocyte Esterase (Negative) Urine WBC (Auto) (0-5) /hpf Urine RBC (Auto) (0-4) /hpf U Hyaline Cast (Auto) (0-5) /lpf U Epithel Cells (Auto) (0-5) /lpf Urine Bacteria (Auto) (Negative) 10/20/22 Range/Units 19:29 WBC (4.8-10.8) K/ul RBC (4.70-6.10) M/uL Hgb (14.0-18.0) g/dl Hct (42.0-52.0) % MCV (80.0-100.0) fL MCH (25.0-34.0) pg MCHC (32.0-36.0) g/dL RDW Std Deviation (36.4-46.3) fL RDW Coeff of Gerard (11.5-14.5) % Plt Count (130-400) K/uL MPV (9.4-12.4) fL Immature Gran % (Auto) % Neut % (Auto) % Lymph % (Auto) % Hickman % (Auto) % Eos % (Auto) % Baso % (Auto) % Neut # (Auto) (1.40-6.50) K/uL Lymph # (Auto) (1.2-3.4) K/uL Hickman # (Auto) (0.11-0.59) K/uL Eos # (Auto) (0-0.50) K/uL Baso # (Auto) (0-0.2) K/uL Immature Gran # (Auto) (0.01-0.20) K/uL Sodium (136-145) mmol/L Potassium (3.5-5.1) mmol/L Chloride (98-107) mmol/L Carbon Dioxide (21-32) mmol/L Anion Gap (3-11) BUN (6-23) mg/dl Creatinine (0.6-1.4) mg/dl Est Cr Clr Drug Dosing ml/min Est GFR ( Amer) ml/min Est GFR (Non-Af Amer) ml/min BUN/Creatinine Ratio (10-20) Glucose (70-99(Fasting)) mg/dl Estimat Average Glucose mg/dl Hemoglobin A1c (4.5-5.6) % Calcium (8.6-10.3) mg/dl Magnesium (1.7-2.4) mg/dl Total Bilirubin (0.2-1.0) mg/dl AST (13-39) U/L ALT (7-52) U/L Alkaline Phosphatase (34-104) U/L Total Protein (6.0-8.3) gm/dl Albumin (3.4-5.0) gm/dl Globulin (2.5-4.0) gm/dl Albumin/Globulin Ratio (0.9-2) Lipase (11-82) U/L Urine Color [place] Urine Appearance Cloudy A (Clear) Urine pH 5.5 (4.5-7.5) Ur Specific Line [place] 1.038 H (1.000-1.030) Urine Protein 2+ H (Negative) Urine Glucose (UA) Negative (Negative) Urine Ketones 1+ H (Negative) Urine Blood Negative (Negative) Urine Nitrite Positive A (Negative) Urine Bilirubin 1+ H (Negative) Urine Urobilinogen Negative (Negative) Ur Leukocyte Esterase Trace H (Negative) Urine WBC (Auto) 1-5 (0-5) /hpf Urine RBC (Auto) 0-4 (0-4) /hpf U Hyaline Cast (Auto) 10-30 H (0-5) /lpf U Epithel Cells (Auto) 20-30 H (0-5) /lpf Urine Bacteria (Auto) Negative (Negative) Administered Medications Enoxaparin Sodium (Enoxaparin Inj 40 Mg/0.4 Ml Syr) [facility] Stop: 11/20/22 08:59 Last Admin: 10/21/22 08:40 Dose: 40 mg Documented By: BJ Folic Acid (Folic Acid 1 Mg Tab) 1 mg PO QAM [facility] Stop: 11/20/22 08:59 Last Admin: 10/21/22 08:40 Dose: 1 mg Documented By: BJ Ciprofloxacin (Cipro / D5w) 400 mg in 200 mls @ 100 mls/hr IV Q12H [facility]; Protocol Stop: 10/31/22 07:59 Last Infusion: 10/21/22 22:02 Dose: 0 mls/hr Documented By: Admin: 10/21/22 20:02 Dose: 100 mls/hr Documented By: Infusion: 10/21/22 10:54 Dose: 0 mls/hr Documented By: Admin: 10/21/22 08:39 Dose: 100 mls/hr Documented By: BJ Metronidazole (Flagyl) 500 mg in 100 mls @ 100 mls/hr IV Q8H [facility]; Protocol Stop: 10/31/22 05:59 Last Infusion: 10/21/22 23:15 Dose: 0 mls/hr Documented By: Admin: 10/21/22 22:15 Dose: 100 mls/hr Documented By: Infusion: 10/21/22 15:39 Dose: 0 mls/hr Documented By: Admin: 10/21/22 14:35 Dose: 100 mls/hr Documented By: Infusion: 10/21/22 08:23 Dose: 0 mls/hr Documented By: Admin: 10/21/22 05:15 Dose: 100 mls/hr Documented By: PAPI Sodium Chloride (Nss 1000ml) 1,000 mls @ 50 mls/hr IV .Q20H [facility] Stop: 10/23/22 00:14 Last Admin: 10/21/22 08:42 Dose: 50 mls/hr Documented By: BJ Losartan Potassium (Losartan Potassium 50 Mg Tab) 50 mg PO QAM [facility] Stop: 11/20/22 08:59 Last Admin: 10/21/22 08:40 Dose: 50 mg Documented By: BJ Miscellaneous (Remove Nicoderm Patch) 1 each N/A DAILY@0859 [facility] Stop: 11/20/22 08:58 Last Admin: 10/21/22 08:41 Dose: 1 each Documented By: BJ Multivitamins (Multivitamin Tab) 1 tab PO QAM [facility] Stop: 11/20/22 08:59 Last Admin: 10/21/22 08:40 Dose: 1 tab Documented By: BJ Nicotine (Nicotine 21 Mg/24 Hr Tdsy) 21 mg TD QAM [facility] Stop: 11/20/22 08:59 Last Admin: 10/21/22 08:39 Dose: 21 mg Documented By: BJ Polyethylene Glycol (Polyethylene (Miralax) 17 Gm Pack) 17 gm PO DAILY PRN PRN Reason: Constipation Stop: 11/20/22 03:59 Last Admin: 10/21/22 05:14 Dose: 17 gm Documented By: PAPI Senna/Docusate Sodium (Docusate Sodium/Senna 50/8.6mg Tab) 1 tab PO BID MORGAN Stop: 11/20/22 03:59 Last Admin: 10/21/22 20:02 Dose: 1 tab Documented By: Admin: 10/21/22 08:40 Dose: 1 tab Documented By: Admin: 10/21/22 04:48 Dose: Not Given Documented By: PAPI Thiamine HCl (Thiamine Hcl 100 Mg Tab) 100 mg PO QAM [facility] Stop: 11/20/22 08:59 Last Admin: 10/21/22 08:40 Dose: 100 mg Documented By: BJ Discontinued Medications Hydromorphone HCl (Hydromorphone Inj 0.5 Mg/0.5 Ml Syr) 0.5 mg IV NOW STA Stop: 10/20/22 19:11 Last Admin: 10/20/22 19:22 Dose: 0.5 mg Documented By: MICHELLE Sodium Chloride (Nss 1000ml) 1,000 mls @ 999 mls/hr IV .Q1H1M STA Stop: 10/20/22 17:57 Last Infusion: 10/20/22 22:02 Dose: 0 mls/hr Documented By: Admin: 10/20/22 19:16 Dose: 999 mls/hr Documented By: MICHELLE Ciprofloxacin (Cipro / D5w) 400 mg in 200 mls @ 100 mls/hr IV NOW STA; Protocol Stop: 10/20/22 21:05 Last Infusion: 10/20/22 22:16 Dose: 0 mls/hr Documented By: Infusion: 10/20/22 21:45 Dose: 100 mls/hr Documented By: Admin: 10/20/22 20:23 Dose: 100 mls/hr Documented By: MICHELLE Metronidazole (Flagyl) 500 mg in 100 mls @ 100 mls/hr IV NOW STA; Protocol Stop: 10/20/22 20:05 Last Infusion: 10/20/22 20:30 Dose: 0 mls/hr Documented By: Admin: 10/20/22 19:17 Dose: 100 mls/hr Documented By: MICHELLE Potassium Chloride/Sodium Chloride (Normal Saline W/20 Meq Kcl) 20 meq in 1,000 mls @ 200 mls/hr IV .Q5H STA; Protocol Stop: 10/21/22 02:08 Last Infusion: 10/21/22 10:54 Dose: 0 mls/hr Documented By: Admin: 10/20/22 21:46 Dose: 80 mls/hr Documented By: MICHELLE Thiamine HCl 100 mg/ Syringe 10 mls @ 2 mls/min IV NOW STA Stop: 10/20/22 21:55 Last Admin: 10/20/22 22:27 Dose: 2 mls/min Documented By: MICHELLE Ioversol (Optiray 320 100ml) 85 ml IV ONCE ONE Stop: 10/20/22 19:01 Last Admin: 10/20/22 19:00 Dose: 85 ml Documented By: RODRIGO Ketorolac Tromethamine (Ketorolac Tromethamine 15 Mg/Ml Vial) 10 mg IV NOW STA Stop: 10/20/22 16:58 Last Admin: 10/20/22 19:32 Dose: Not Given Documented By: MICHELLE Nicotine (Nicotine 21 Mg/24 Hr Tdsy) 21 mg TD ONE STA Stop: 10/20/22 21:48 Last Admin: 10/20/22 22:31 Dose: 21 mg Documented By: MICHELLE Ondansetron HCl (Ondansetron Inj 2 Mg/Ml 2 Ml Vial) 4 mg IV NOW STA Stop: 10/20/22 16:58 Last Admin: 10/20/22 19:21 Dose: 4 mg Documented By: MICHELLE Ondansetron HCl (Ondansetron Inj 2 Mg/Ml 2 Ml Vial) Confirm Administered Dose 4 mg .ROUTE .STK-MED ONE Stop: 10/20/22 19:15 Last Admin: 10/20/22 19:32 Dose: Not Given Documented By: MICHELLE Polyethylene Glycol (Polyethylene (Miralax) 17 Gm Pack) 17 gm PO NOW STA Stop: 10/21/22 04:01 Last Admin: 10/21/22 04:50 Dose: 17 gm Documented By: [facility] Imaging Data Radiologist's Impression: Abdomen/Pelvis CT 10/20/22 16:57 CR Exam(s): CT ABDOMEN + PELVIS With Contrast IV Amt: 85ml EXAM: CT Abdomen and Pelvis With Intravenous Contrast CLINICAL HISTORY: Reason for exam: LLQ, change in BMs, umbilical hernia. TECHNIQUE: Axial computed tomography images of the abdomen and pelvis with intravenous contrast. CTDI is 28.14 mGy and DLP is 1513.9 mGy-cm. Automated exposure control was utilized for the study. A dose lowering technique was utilized adhering to the principles of ALARA. CONTRAST: Patient received 85ml of IV contrast COMPARISON: No relevant prior studies available. FINDINGS: Mediastinum: Small hiatal hernia. ABDOMEN: Liver: Fatty liver. Gallbladder and bile ducts: No radiodense stones. No biliary ductal dilation. Pancreas: Unremarkable. Spleen: Unremarkable. Adrenals: Unremarkable. Kidneys and ureters: No renal or ureteral calculi. No obstructive changes. Stomach and bowel: Diverticulitis at the junction of the descending- sigmoid colon with adjacent inflammatory changes and loculated extraluminal air. Colonic diverticula. PELVIS: Appendix: Unremarkable appendix. Bladder: Unremarkable. Reproductive: Unremarkable. ABDOMEN and PELVIS: Intraperitoneal space: See above. Bones/joints: No acute fracture. Soft tissues: Fat-containing umbilical hernia. Vasculature: No acute process. Lymph nodes: No bulky adenopathy. IMPRESSION: Diverticulitis at the junction of the descending-sigmoid colon with adjacent inflammatory changes and loculated extraluminal air. Findings consistent with perforated colonic diverticulitis. Communications: Call Doctor Other Electronically signed by: Roslyn Davis M.D. 10/20/22 19:49 PM Discharge Plan Visit Data Chief Complaint: Constipation Stated Complaint: BOWEL ISSUES ED Provider: Laurel Yanes Discharge Problem: Diverticulitis large intestine Patient Disposition: Admitted As Inpatient Discharge Instructions Interventions: ED Discharge Assessment Last Done: 10/21/22 03:25
[2022-10-21] MEDS ORDERED: POLYETHYLENE (MIRALAX) 17 GM PACK PO STA (04:00)
[2022-10-21] MEDS ORDERED: ACETAMINOPHEN 325 MG TAB PO PRN (04:00)
[2022-10-21] MEDS ORDERED: POLYETHYLENE (MIRALAX) 17 GM PACK PO PRN (04:00)
[2022-10-21] MEDS: DOCUSATE SODIUM/SENNA 50/8.6MG TAB PO SCH ×3 (04:48→20:02)
[2022-10-21] MEDS: metroNIDAZOLE 500 MG/100 ML BAG IV SCH ×3 (05:15→22:15)
[2022-10-21 07:08] LABS: Estimated Average Glucose 123 mg/dl; Hemoglobin A1C 5.9 % (4.5-5.6)
[2022-10-21 07:32] LABS: Basophils % (auto) 0.6 %; Eosinophils # (auto) 0.06 K/uL (0-0.50); Eosinophils % (auto) 0.3 %; Hematocrit (blood only) 37.6 % (42.0-52.0); Hemoglobin 13.2 g/dl (14.0-18.0); Immature Granulocytes % (auto) 0.6 %; Lymphocytes # (auto) 2.76 K/uL (1.2-3.4); Lymphocytes % (auto) 15.7 %; Mean Corpuscular Hemoglobin 33.8 pg (25.0-34.0); Mean Corpuscular Hgb Conc 35.1 g/dL (32.0-36.0); Mean Corpuscular Volume 96.4 fL (80.0-100.0); Mean Platelet Volume 9.8 fL (9.4-12.4); Monocytes % (auto) 9.7 %; Neutrophils # (auto) 12.81 K/uL (1.40-6.50); Neutrophils % (auto) 73.1 %; Platelet Count 258 K/uL (130-400); RDW Coefficient of Variation 14.2 % (11.5-14.5); RDW Standard Deviation 50.1 fL (36.4-46.3); White Blood Count 17.53 K/ul (4.8-10.8)
[2022-10-21 07:47] LABS: Calcium 8.3 mg/dl (8.6-10.3); Potassium 3.7 mmol/L (3.5-5.1)
[2022-10-21 07:53] LABS: BUN Creatinine Ratio 14.5 (10-20); Creatinine Clr Calc Pharmacy 158.1 ml/min; Est GFR (African American) 123.2 ml/min; Est GFR (Non-African American) 106.3 ml/min
[2022-10-21] MEDS: NICOTINE 21 MG/24 HR TDSY TD SCH (08:39)
[2022-10-21] MEDS: CIPROFLOXACIN / D5W 400 MG/200 ML BAG IV SCH ×2 (08:39→20:02)
[2022-10-21] MEDS: FOLIC ACID 1 MG TAB PO SCH (08:40)
[2022-10-21] MEDS: LOSARTAN POTASSIUM 50 MG TAB PO SCH (08:40)
[2022-10-21] MEDS: MULTIVITAMIN TAB PO SCH (08:40)
[2022-10-21] MEDS: THIAMINE HCL 100 MG TAB PO SCH (08:40)
[2022-10-21] MEDS: ENOXAPARIN INJ 40 MG/0.4 ML SYR SQ SCH (08:40)
[2022-10-21] MEDS: SODIUM CHLORIDE 0.9% 1000ML 1,000 ML IV SCH (08:42)
[2022-10-21] MEDS ORDERED: LOSARTAN POTASSIUM 50 MG TAB PO SCH (09:00)
--- NOTE | 2022-10-21 12:49 | Surgery Progress Note ---
Date of Service October 21, 2022 Assessment & Plan (1) HTN (hypertension): (2) Diverticulitis large intestine: Plan 47-year-old gentleman with diverticulitis with what appears to be contained perforation on CT scan. avss leukocytosis improved to 17k (20K) pain improving no n,v Plan: continue IV Cipro and flagyl continue conservative management continue medical management follow cbc If he were to fail to improve after few days of IV antibiotics, he will need to be rescanned for potential abscess development. Dr. Hart has seen and examined pt, agrees with above. Admission and Anticipated Discharge Date Admission Date: October 20, 2022 Subjective feeling better this morning pain minimal, no longer severe no n,v tolerating clear liquids Physical Exam Constitutional: WD/WN, vitals as above no acute distress and not ill appearing Respiratory: normal respiratory effort; no respiratory distress Gastrointestinal (Abdomen): Inspection/Auscultation: abdomen normal to inspection; abdomen not distended Percussion/Palpation: + abdomen tender (LLQ improving) and abdomen soft; no guarding and abdomen not rigid Skin: no rashes, warm and dry Psychiatric: Orientation: alert and oriented x 3 Results & Data Vital Signs (Past 12 Hours) Vital Signs Temp Pulse Pulse Resp BP BP Pulse Ox 10/21/22 11:53 36.7 C 88 18 140/87 93 10/21/22 08:30 10/21/22 08:00 87 10/21/22 07:53 36.7 C 89 22 130/85 93 10/21/22 03:46 88 10/21/22 04:00 10/21/22 04:00 36.8 C 91 H 18 137/87 93 10/21/22 03:00 89 20 153/100 H 90 10/21/22 01:21 86 20 109/63 93 O2 Del Method 10/21/22 11:53 Room Air 10/21/22 08:30 Room Air 10/21/22 08:00 10/21/22 07:53 Room Air 10/21/22 03:46 10/21/22 04:00 Room Air 10/21/22 04:00 Room Air 10/21/22 03:00 Room Air 10/21/22 01:21 Room Air Laboratory Results 10/21/22 10/21/22 10/20/22 Range/Units 07:16 07:16 22:48 WBC 17.53 H (4.8-10.8) K/ul RBC 3.90 L (4.70-6.10) M/uL Hgb 13.2 L (14.0-18.0) g/dl Hct 37.6 L (42.0-52.0) % MCV 96.4 (80.0-100.0) fL MCH 33.8 (25.0-34.0) pg MCHC 35.1 (32.0-36.0) g/dL RDW Std Deviation 50.1 H (36.4-46.3) fL RDW Coeff of Gerard 14.2 (11.5-14.5) % Plt Count 258 (130-400) K/uL MPV 9.8 (9.4-12.4) fL Immature Gran % (Auto) 0.6 % Neut % (Auto) 73.1 % Lymph % (Auto) 15.7 % Schleicher % (Auto) 9.7 % Eos % (Auto) 0.3 % Baso % (Auto) 0.6 % Neut # (Auto) 12.81 H (1.40-6.50) K/uL Lymph # (Auto) 2.76 (1.2-3.4) K/uL Schleicher # (Auto) 1.70 H (0.11-0.59) K/uL Eos # (Auto) 0.06 (0-0.50) K/uL Baso # (Auto) 0.10 (0-0.2) K/uL Immature Gran # (Auto) 0.10 (0.01-0.20) K/uL Sodium 135 L (136-145) mmol/L Potassium 3.7 (3.5-5.1) mmol/L Chloride 104 (98-107) mmol/L Carbon Dioxide 25 (21-32) mmol/L Anion Gap 6 (3-11) BUN 12 (6-23) mg/dl Creatinine 0.83 (0.6-1.4) mg/dl Est Cr Clr Drug Dosing 158.1 ml/min Est GFR ( Amer) 123.2 ml/min Est GFR (Non-Af Amer) 106.3 ml/min BUN/Creatinine Ratio 14.5 (10-20) Glucose 97 (70-99(Fasting)) mg/dl Estimat Average Glucose mg/dl Hemoglobin A1c (4.5-5.6) % Lactate (0.4-2.0) mmol/L Calcium 8.3 L (8.6-10.3) mg/dl Magnesium (1.7-2.4) mg/dl Total Bilirubin (0.2-1.0) mg/dl AST (13-39) U/L ALT (7-52) U/L Alkaline Phosphatase (34-104) U/L Total Protein (6.0-8.3) gm/dl Albumin (3.4-5.0) gm/dl Globulin (2.5-4.0) gm/dl Albumin/Globulin Ratio (0.9-2) Lipase (11-82) U/L Urine Color Urine Appearance (Clear) Urine pH (4.5-7.5) Ur Specific [place] (1.000-1.030) Urine Protein (Negative) Urine Glucose (UA) (Negative) Urine Ketones (Negative) Urine Blood (Negative) Urine Nitrite (Negative) Urine Bilirubin (Negative) Urine Urobilinogen (Negative) Ur Leukocyte Esterase (Negative) Urine WBC (Auto) (0-5) /hpf Urine RBC (Auto) (0-4) /hpf U Hyaline Cast (Auto) (0-5) /lpf U Epithel Cells (Auto) (0-5) /lpf Urine Bacteria (Auto) (Negative) Ethyl Alcohol mg/dL < 10.0 (<10.0) mg/dl SARS-CoV-2, RNA, NAAT (NEGATIVE) 10/20/22 10/20/22 10/20/22 Range/Units 22:48 22:42 19:29 WBC (4.8-10.8) K/ul RBC (4.70-6.10) M/uL Hgb (14.0-18.0) g/dl Hct (42.0-52.0) % MCV (80.0-100.0) fL MCH (25.0-34.0) pg MCHC (32.0-36.0) g/dL RDW Std Deviation (36.4-46.3) fL RDW Coeff of Gerard (11.5-14.5) % Plt Count (130-400) K/uL MPV (9.4-12.4) fL Immature Gran % (Auto) % Neut % (Auto) % Lymph % (Auto) % Schleicher % (Auto) % Eos % (Auto) % Baso % (Auto) % Neut # (Auto) (1.40-6.50) K/uL Lymph # (Auto) (1.2-3.4) K/uL Schleicher # (Auto) (0.11-0.59) K/uL Eos # (Auto) (0-0.50) K/uL Baso # (Auto) (0-0.2) K/uL Immature Gran # (Auto) (0.01-0.20) K/uL Sodium (136-145) mmol/L Potassium (3.5-5.1) mmol/L Chloride (98-107) mmol/L Carbon Dioxide (21-32) mmol/L Anion Gap (3-11) BUN (6-23) mg/dl Creatinine (0.6-1.4) mg/dl Est Cr Clr Drug Dosing ml/min Est GFR ( Amer) ml/min Est GFR (Non-Af Amer) ml/min BUN/Creatinine Ratio (10-20) Glucose (70-99(Fasting)) mg/dl Estimat Average Glucose mg/dl Hemoglobin A1c (4.5-5.6) % Lactate 0.9 (0.4-2.0) mmol/L Calcium (8.6-10.3) mg/dl Magnesium (1.7-2.4) mg/dl Total Bilirubin (0.2-1.0) mg/dl AST (13-39) U/L ALT (7-52) U/L Alkaline Phosphatase (34-104) U/L Total Protein (6.0-8.3) gm/dl Albumin (3.4-5.0) gm/dl Globulin (2.5-4.0) gm/dl Albumin/Globulin Ratio (0.9-2) Lipase (11-82) U/L Urine Color [place] Urine Appearance Cloudy A (Clear) Urine pH 5.5 (4.5-7.5) Ur Specific [place] 1.038 H (1.000-1.030) Urine Protein 2+ H (Negative) Urine Glucose (UA) Negative (Negative) Urine Ketones 1+ H (Negative) Urine Blood Negative (Negative) Urine Nitrite Positive A (Negative) Urine Bilirubin 1+ H (Negative) Urine Urobilinogen Negative (Negative) Ur Leukocyte Esterase Trace H (Negative) Urine WBC (Auto) 1-5 (0-5) /hpf Urine RBC (Auto) 0-4 (0-4) /hpf U Hyaline Cast (Auto) 10-30 H (0-5) /lpf U Epithel Cells (Auto) 20-30 H (0-5) /lpf Urine Bacteria (Auto) Negative (Negative) Ethyl Alcohol mg/dL (<10.0) mg/dl SARS-CoV-2, RNA, NAAT NEGATIVE (NEGATIVE) 10/20/22 10/20/22 10/20/22 Range/Units 17:25 17:25 17:25 WBC 20.14 H (4.8-10.8) K/ul RBC 4.50 L (4.70-6.10) M/uL Hgb 15.1 (14.0-18.0) g/dl Hct 43.0 (42.0-52.0) % MCV 95.6 (80.0-100.0) fL MCH 33.6 (25.0-34.0) pg MCHC 35.1 (32.0-36.0) g/dL RDW Std Deviation 48.8 H (36.4-46.3) fL RDW Coeff of Gerard 13.9 (11.5-14.5) % Plt Count 273 (130-400) K/uL MPV 10.2 (9.4-12.4) fL Immature Gran % (Auto) 0.7 % Neut % (Auto) 80.6 % Lymph % (Auto) 7.8 % Schleicher % (Auto) 10.2 % Eos % (Auto) 0.2 % Baso % (Auto) 0.5 % Neut # (Auto) 16.22 H (1.40-6.50) K/uL Lymph # (Auto) 1.58 (1.2-3.4) K/uL Schleicher # (Auto) 2.06 H (0.11-0.59) K/uL Eos # (Auto) 0.04 (0-0.50) K/uL Baso # (Auto) 0.10 (0-0.2) K/uL Immature Gran # (Auto) 0.14 (0.01-0.20) K/uL Sodium 133 L (136-145) mmol/L Potassium 3.7 (3.5-5.1) mmol/L Chloride 101 (98-107) mmol/L Carbon Dioxide 24 (21-32) mmol/L Anion Gap 8 (3-11) BUN 12 (6-23) mg/dl Creatinine 1.04 (0.6-1.4) mg/dl Est Cr Clr Drug Dosing 125.6 ml/min Est GFR ( Amer) 100.0 ml/min Est GFR (Non-Af Amer) 86.3 ml/min BUN/Creatinine Ratio 11.5 (10-20) Glucose 115 H (70-99(Fasting)) mg/dl Estimat Average Glucose 123 mg/dl Hemoglobin A1c 5.9 H (4.5-5.6) % Lactate (0.4-2.0) mmol/L Calcium 9.0 (8.6-10.3) mg/dl Magnesium 2.6 H (1.7-2.4) mg/dl Total Bilirubin 0.7 (0.2-1.0) mg/dl AST 23 (13-39) U/L ALT 32 (7-52) U/L Alkaline Phosphatase 90 (34-104) U/L Total Protein 7.6 (6.0-8.3) gm/dl Albumin 3.8 (3.4-5.0) gm/dl Globulin 3.8 (2.5-4.0) gm/dl Albumin/Globulin Ratio 1.0 (0.9-2) Lipase 30 (11-82) U/L Urine Color Urine Appearance (Clear) Urine pH (4.5-7.5) Ur Specific [place] (1.000-1.030) Urine Protein (Negative) Urine Glucose (UA) (Negative) Urine Ketones (Negative) Urine Blood (Negative) Urine Nitrite (Negative) Urine Bilirubin (Negative) Urine Urobilinogen (Negative) Ur Leukocyte Esterase (Negative) Urine WBC (Auto) (0-5) /hpf Urine RBC (Auto) (0-4) /hpf U Hyaline Cast (Auto) (0-5) /lpf U Epithel Cells (Auto) (0-5) /lpf Urine Bacteria (Auto) (Negative) Ethyl Alcohol mg/dL (<10.0) mg/dl SARS-CoV-2, RNA, NAAT (NEGATIVE)
--- NOTE | 2022-10-21 15:54 | Hospitalist Progress Note ---
Date of Service October 21, 2022 Assessment & Plan (1) Diverticulitis large intestine: (2) HTN (hypertension): (3) Asthma: (4) Depression: (5) Tobacco use disorder: Plan Sepsis Secondary to perforated colonic diverticulitis --CT ABD:Diverticulitis at the junction of the descending-sigmoid colon with adjacent inflammatory changes and loculated extraluminal air. Findings consistent with perforated colonic diverticulitis. --Blood culture:Pending Continue IV antibiotics, gentle IV fluids Pain control Clear liquid diet for now Appreciate surgery input Prediabetes HbA1c 5.9 Hypertension Initially presented with relatively low BP Blood pressure improved with IV fluids Continue losartan Monitor Tobacco use disorder Counseled to quit smoking Continue nicotine patch Possible alcohol abuse Monitor for withdrawal Mood disorder stable off maintenance medications Monitor DVT Px: Lovenox SQ Code Status Full code Admission and Anticipated Discharge Date Admission Date: October 20, 2022 Subjective History and examined at bedside Left lower quadrant abdominal pain much improved Tolerating current diet Denies any chest pain, dyspnea, dizziness, nausea, vomiting No other complaints Review of Systems Review of Systems: All systems reviewed & are unremarkable except as noted in Subjective Physical Exam Physical Exam: Physical Exam: Vitals signs as noted above General Appearance:Obese, no apparent distress Head: normocephalic, Atraumatic Eyes: normal inspection, EOMI Neck: supple, Trachea midline Respiratory/Chest: Decreased breath sounds, CTA Cardiovascular: S1, S2, No murmur Abdomen/GI:Soft, Minimal LLQ tender, Bowel sounds present Extremities/Musculoskeletal:normal inspection, Trace edema Neurologic/Psych:AAOX3, grossly no focal neurological deficits Skin: normal color, warm Results & Data Results & Data Vital Signs (Past 12 Hours) Vital Signs Temp Pulse Pulse Resp BP BP Pulse Ox 10/21/22 15:00 81 10/21/22 11:53 36.7 C 88 18 140/87 93 10/21/22 08:30 10/21/22 08:00 87 10/21/22 07:53 36.7 C 89 22 130/85 93 10/21/22 04:00 10/21/22 04:00 36.8 C 91 H 18 137/87 93 O2 Del Method 10/21/22 15:00 10/21/22 11:53 Room Air 10/21/22 08:30 Room Air 10/21/22 08:00 10/21/22 07:53 Room Air 10/21/22 04:00 Room Air 10/21/22 04:00 Room Air Laboratory Results Short CBC 10/20/22 10/21/22 Range/Units 17:25 07:16 WBC 20.14 H 17.53 H (4.8-10.8) K/ul Hgb 15.1 13.2 L (14.0-18.0) g/dl Hct 43.0 37.6 L (42.0-52.0) % Plt Count 273 258 (130-400) K/uL BMP 10/20/22 10/21/22 17:25 07:16 Sodium 133 L 135 L Potassium 3.7 3.7 Chloride 101 104 Carbon Dioxide 24 25 BUN 12 12 Creatinine 1.04 0.83 Glucose 115 H 97 Calcium 9.0 8.3 L Liver Function 10/20/22 Range/Units 17:25 Total Bilirubin 0.7 (0.2-1.0) mg/dl AST 23 (13-39) U/L ALT 32 (7-52) U/L Alkaline Phosphatase 90 (34-104) U/L Albumin 3.8 (3.4-5.0) gm/dl Urine 10/20/22 Range/Units 19:29 Urine Color [place] Urine Appearance Cloudy A (Clear) Urine pH 5.5 (4.5-7.5) Ur Specific [place] 1.038 H (1.000-1.030) Urine Protein 2+ H (Negative) Urine Glucose (UA) Negative (Negative)
[2022-10-22] MEDS: metroNIDAZOLE 500 MG/100 ML BAG IV SCH ×3 (05:17→21:56)
[2022-10-22 07:57] LABS: Hematocrit (blood only) 39.6 % (42.0-52.0); Hemoglobin 13.7 g/dl (14.0-18.0); Mean Corpuscular Hgb Conc 34.6 g/dL (32.0-36.0); Mean Corpuscular Volume 95.4 fL (80.0-100.0); Mean Platelet Volume 9.7 fL (9.4-12.4); Platelet Count 305 K/uL (130-400); RDW Standard Deviation 49.2 fL (36.4-46.3); Red Blood Count 4.15 M/uL (4.70-6.10)
[2022-10-22] MEDS: CIPROFLOXACIN / D5W 400 MG/200 ML BAG IV SCH ×2 (08:18→19:49)
[2022-10-22] MEDS: SODIUM CHLORIDE 0.9% 1000ML 1,000 ML IV SCH (08:18)
[2022-10-22 08:19] LABS: BUN Creatinine Ratio 11.1 (10-20); Calcium 8.7 mg/dl (8.6-10.3); Creatinine Clr Calc Pharmacy 184.1 ml/min; Est GFR (African American) 130.6 ml/min; Est GFR (Non-African American) 112.7 ml/min; Magnesium 2.2 mg/dl (1.7-2.4); Potassium 3.6 mmol/L (3.5-5.1)
[2022-10-22] MEDS: NICOTINE 21 MG/24 HR TDSY TD SCH (08:19)
[2022-10-22] MEDS: LOSARTAN POTASSIUM 50 MG TAB PO SCH (08:20)
[2022-10-22] MEDS: FOLIC ACID 1 MG TAB PO SCH (08:20)
[2022-10-22] MEDS: MULTIVITAMIN TAB PO SCH (08:20)
[2022-10-22] MEDS: THIAMINE HCL 100 MG TAB PO SCH (08:20)
[2022-10-22] MEDS: DOCUSATE SODIUM/SENNA 50/8.6MG TAB PO SCH ×2 (08:21→19:54)
[2022-10-22] MEDS: ENOXAPARIN INJ 40 MG/0.4 ML SYR SQ SCH (08:23)
--- NOTE | 2022-10-22 12:48 | Surgery Progress Note ---
Date of Service October 22, 2022 Assessment & Plan (1) HTN (hypertension): (2) Diverticulitis large intestine: Plan 47-year-old gentleman with diverticulitis with what appears to be contained perforation on CT scan. avss leukocytosis improved to 13K pain resolved no n,v + bowel function Plan: continue IV Cipro and flagyl, likely can transition to oral abx tomorrow low fiber diet today continue conservative management continue medical management follow cbc in am Dr. Hart has seen pt, agrees with above. Admission and Anticipated Discharge Date Admission Date: October 20, 2022 Supervising Physician Co-Signing Physician Notes I have seen and examined the patient personally and agree with the above assessment plan. He is doing much better. He continues on IV antibiotics. We will advance his diet as tolerated. Most likely discharge to home tomorrow. Subjective feeling much better having no abdominal pain tolerating clear liquids without pain or nausea loose stools no fevers or chills Physical Exam Constitutional: WD/WN, vitals as above + obese, cooperative and comfortable; no acute distress and not ill appearing Respiratory: normal respiratory effort; no respiratory distress Gastrointestinal (Abdomen): Inspection/Auscultation: abdomen normal to inspection and + visible herniation (umbilical hernia); abdomen not distended Percussion/Palpation: abdomen soft; abdomen nontender, no guarding, abdomen not rigid and abdomen not firm Skin: no rashes, warm and dry Psychiatric: Orientation: alert and oriented x 3 Results & Data Vital Signs (Past 12 Hours) Vital Signs Temp Pulse Pulse Resp BP Pulse Ox O2 Del Method 10/22/22 10:58 36.9 C 80 19 121/74 95 Room Air 10/22/22 10:44 Room Air 10/22/22 07:57 36.7 C 86 18 132/89 93 Room Air 10/22/22 07:38 88 10/22/22 04:45 36.7 C 86 16 141/78 H 91 Room Air Laboratory Results 10/22/22 10/22/22 Range/Units 07:29 07:29 WBC 13.90 H (4.8-10.8) K/ul RBC 4.15 L (4.70-6.10) M/uL Hgb 13.7 L (14.0-18.0) g/dl Hct 39.6 L (42.0-52.0) % MCV 95.4 (80.0-100.0) fL MCH 33.0 (25.0-34.0) pg MCHC 34.6 (32.0-36.0) g/dL RDW Std Deviation 49.2 H (36.4-46.3) fL RDW Coeff of Gerard 14.0 (11.5-14.5) % Plt Count 305 (130-400) K/uL MPV 9.7 (9.4-12.4) fL Sodium 137 (136-145) mmol/L Potassium 3.6 (3.5-5.1) mmol/L Chloride 106 (98-107) mmol/L Carbon Dioxide 23 (21-32) mmol/L Anion Gap 8 (3-11) BUN 8 (6-23) mg/dl Creatinine 0.72 (0.6-1.4) mg/dl Est Cr Clr Drug Dosing 184.1 ml/min Est GFR ( Amer) 130.6 ml/min Est GFR (Non-Af Amer) 112.7 ml/min BUN/Creatinine Ratio 11.1 (10-20) Glucose 114 H (70-99(Fasting)) mg/dl Calcium 8.7 (8.6-10.3) mg/dl Magnesium 2.2 (1.7-2.4) mg/dl (2) Diverticulitis large intestine Diverticulitis bleeding: without bleeding Diverticulitis complication: with perforation and without abscess Qualified Code(s): K57.20 - Diverticulitis of large intestine with perforation and abscess without bleeding
--- NOTE | 2022-10-22 16:14 | Hospitalist Progress Note ---
Date of Service October 22, 2022 Assessment & Plan (1) Diverticulitis large intestine: (2) HTN (hypertension): (3) Asthma: (4) Depression: (5) Tobacco use disorder: Plan Sepsis Secondary to perforated colonic diverticulitis --CT ABD:Diverticulitis at the junction of the descending-sigmoid colon with adjacent inflammatory changes and loculated extraluminal air. Findings consistent with perforated colonic diverticulitis. --Blood culture:Pending Continue IV antibiotics Received IV fluids Pain control Appreciate surgery input Advance to low fiber diet Plan to transition to p.o. antibiotics and likely discharge home tomorrow Prediabetes HbA1c 5.9 Hypertension Initially presented with relatively low BP Blood pressure improved with IV fluids Continue losartan Monitor Tobacco use disorder Counseled to quit smoking Continue nicotine patch Possible alcohol abuse Monitor for withdrawal Mood disorder stable off maintenance medications Monitor DVT Px: Lovenox SQ Code Status Full code Admission and Anticipated Discharge Date Admission Date: October 20, 2022 Subjective Patient is seen and examined at bedside Abdominal pain resolved Tolerated liquid diet Offers no new complaints Denies any nausea, vomiting, chest pain, dyspnea Review of Systems 2 Review of Systems: All systems reviewed & are unremarkable except as noted in Subjective Physical Exam Physical Exam: Physical Exam: Vitals signs as noted above General Appearance:Obese, no apparent distress Head: normocephalic, Atraumatic Eyes: normal inspection, EOMI Neck: supple, Trachea midline Respiratory/Chest: Decreased breath sounds, CTA Cardiovascular: S1, S2, No murmur Abdomen/GI:Soft, non tender,+ umbilical hernia, bowel sounds present Extremities/Musculoskeletal:normal inspection, Trace edema Neurologic/Psych:AAOX3, grossly no focal neurological deficits Skin: normal color, warm Results & Data Results & Data Vital Signs (Past 12 Hours) Vital Signs Temp Pulse Pulse Resp BP Pulse Ox O2 Del Method 10/22/22 15:40 36.6 C 84 18 142/98 H 93 Room Air 10/22/22 10:58 36.9 C 80 19 121/74 95 Room Air 10/22/22 10:44 Room Air 10/22/22 07:57 36.7 C 86 18 132/89 93 Room Air 10/22/22 07:38 88 10/22/22 04:45 36.7 C 86 16 141/78 H 91 Room Air Laboratory Results Short CBC 10/22/22 Range/Units 07:29 WBC 13.90 H (4.8-10.8) K/ul Hgb 13.7 L (14.0-18.0) g/dl Hct 39.6 L (42.0-52.0) % Plt Count 305 (130-400) K/uL [facility] 10/22/22 07:29 Sodium 137 Potassium 3.6 Chloride 106 Carbon Dioxide 23 BUN 8 Creatinine 0.72 Glucose 114 H Calcium 8.7 (1) Diverticulitis large intestine Diverticulitis bleeding: without bleeding Diverticulitis complication: with perforation and without abscess Qualified Code(s): K57.20 - Diverticulitis of large intestine with perforation and abscess without bleeding
[2022-10-23] MEDS: metroNIDAZOLE 500 MG/100 ML BAG IV SCH (05:05)
[2022-10-23 07:37] LABS: Mean Corpuscular Hemoglobin 33.2 pg (25.0-34.0); Mean Corpuscular Hgb Conc 34.2 g/dL (32.0-36.0); Mean Corpuscular Volume 96.9 fL (80.0-100.0); Mean Platelet Volume 9.8 fL (9.4-12.4); Platelet Count 318 K/uL (130-400); RDW Coefficient of Variation 14.3 % (11.5-14.5); RDW Standard Deviation 50.7 fL (36.4-46.3); Red Blood Count 3.92 M/uL (4.70-6.10); White Blood Count 14.06 K/ul (4.8-10.8)
[2022-10-23 07:56] LABS: BUN Creatinine Ratio 12.2 (10-20); Calcium 8.8 mg/dl (8.6-10.3); Creatinine Clr Calc Pharmacy 178.9 ml/min; Est GFR (African American) 129.1 ml/min; Est GFR (Non-African American) 111.4 ml/min; Potassium 3.7 mmol/L (3.5-5.1)
[2022-10-23] MEDS: LOSARTAN POTASSIUM 50 MG TAB PO SCH (08:07)
[2022-10-23] MEDS: THIAMINE HCL 100 MG TAB PO SCH (08:07)
[2022-10-23] MEDS: DOCUSATE SODIUM/SENNA 50/8.6MG TAB PO SCH (08:07)
[2022-10-23] MEDS: FOLIC ACID 1 MG TAB PO SCH (08:07)
[2022-10-23] MEDS: CIPROFLOXACIN / D5W 400 MG/200 ML BAG IV SCH (08:07)
[2022-10-23] MEDS: MULTIVITAMIN TAB PO SCH (08:07)
[2022-10-23] MEDS: ENOXAPARIN INJ 40 MG/0.4 ML SYR SQ SCH (08:08)
[2022-10-23] MEDS: NICOTINE 21 MG/24 HR TDSY TD SCH (08:08)
--- NOTE | 2022-10-23 08:28 | Surgery Progress Note ---
Date of Service October 23, 2022 Assessment & Plan (1) HTN (hypertension): (2) Diverticulitis large intestine: Plan 47-year-old gentleman with diverticulitis with what appears to be contained perforation on CT scan. avss pain resolved no n,v + bowel function Plan: transition to PO abx D/C to home today will need outpatient colonoscopy in 6-8 weeks; f/u with GI Admission and Anticipated Discharge Date Admission Date: October 20, 2022 Subjective doing well. no pain/n/v Physical Exam Gastrointestinal (Abdomen): Inspection/Auscultation: abdomen normal to inspection; abdomen not distended Percussion/Palpation: abdomen soft and + hernia (Umbilical, nontender); no guarding and abdomen not rigid Results & Data Vital Signs (Past 12 Hours) Vital Signs Temp Pulse Resp BP Pulse Ox O2 Del Method 10/23/22 07:27 36.8 C 79 18 128/75 95 Room Air 10/22/22 22:27 36.7 C 84 18 136/87 95 Room Air (2) Diverticulitis large intestine Diverticulitis bleeding: without bleeding Diverticulitis complication: with perforation and without abscess Qualified Code(s): K57.20 - Diverticulitis of large intestine with perforation and abscess without bleeding
--- NOTE | 2022-10-23 12:04 | Discharge Summary ---
Discharge Summary Date of Service October 23, 2022 Notes For Next Care Provider Acute diverticulitis of large intestine,treated conservatively with IV abx, f/u with GI for op colonoscopy in 6-8 weeks. Medication Changes From Visit Cipro 500mg BID and Flagyl 500mg TID x 7 days Admission HPI Per Admitting Provider This is a 47-year-old male with PMH of hypertension, depression, tobacco use, asthma, obesity and other medical problems listed below who presents with abdominal pain over the past 3 days. Developed lower colicky abdominal pain on Wednesday this weekend that was worse with any type of movement or exertion. Remains pretty comfortable at rest. Thought he may be constipated, so he took a lot of laxatives on Wednesday and had multiple bowel movements, but the lower abdominal discomfort remained. Attempted to go to work today but pain was too severe and came to ED for further evaluation this evening. Has also been experiencing intermittent bouts of dizziness that started around the same time as the abdominal pain. Denies any headache or vertigo. Denies any fever, chills, nausea or vomiting. No dysuria. No history of diverticulitis in the past. Smokes 1 pack/day, drinks alcohol most nights but denies history of withdrawal issues in the past. Admission Exam Per Admitting Provider General Appearance:WD/WN, vitals as above, NAD, sitting up in bed, pleasant, obese, appears anxious Head: normocephalic, atraumatic Eyes:normal inspection, PERRL, conjunctivae normal, anicteric sclerae ENT: external ear and nose normal, oropharynx normal Neck: normal visual inspection, trachea midline, no thyromegaly Respiratory:normal respiratory effort, lungs clear to auscultation, no wheeze, rales, rhonchi. No accessory muscle use Cardiovascular: tachycardic rate, regular rhythm, no murmur appreciated, normal peripheral pulses, no BLE edema Chest: normal inspection of chest Abdomen/GI: normal bowel sounds, soft, TTP of LLQ, umbilical hernia, no hepatosplenomegaly Extremities/Musculoskeletal: no cyanosis or clubbing, extremities motor strength 5/5 Neurologic: PERRL, EOMI, accommodation nl, no face palsy, no dysarthria, CN's II-XI intact bilaterally and moves all extremities Psychiatric:A+Ox3, euthymic affect Skin: no rashes, normal color, warm/dry Principal Dx & Hospital Course #1 = Principal Diagnosis (1) Diverticulitis large intestine: (2) HTN (hypertension): (3) Asthma: (4) Depression: (5) Tobacco use disorder: Plan This is a 47-year-old male with PMH of hypertension, depression, tobacco use, asthma, obesity and other medical problems listed below who presents with abdominal pain over the past 3 days and was admitted with diverticulitis.CT ABD with diverticulitis at the junction of the descending-sigmoid colon with adjacent inflammatory changes and loculated extraluminal air. Findings consistent with perforated colonic diverticulitis. General surgery reviewed imaging and felt perforation was contained. Conservatively managed with IV Zosyn and then transitioned to Cipro Flagyl. Patients symptoms have resolved and he is tolerating low fiber diet without issue. Continuing 7 days of Cipro and Flagyl to complete course. Will need to follow up with GI for outpatient colonoscopy in 6-8 weeks. Counseled on smoking cessation and denies nicotine patch at time of discharge. Hemodynamically stable at time of discharge home. Discharge Exam Gen: WD/WN, NAD, sitting up in bed, A&Ox3, obese HEENT: Normocephalic, atraumatic, conjunctivae moist, sclerae anicteric, mucous membranes moist Lung: Clear to Auscultation bilaterally, +scattered wheezes Heart: Regular rate, regular rhythm, no murmurs, rubs, or gallops Abdomen: Soft, NT, ND +BS x 4 Extremities: no edema Skin: Warm, no rash Updated Medication List Medication Instructions Recorded Confirmed Type albuterol sulfate 90 mcg/actuation 2 puff inhalation QID PRN 10/20/22 10/20/22 History aerosol inhaler Shortness Of Breath Or Wheezing losartan 50 mg tablet 50 mg PO QAM 10/20/22 10/20/22 History Lactobacillus acidophilus 10 100 mmu cells PO DAILY #14 caps 10/23/22 Rx billion cell capsule (Probiotic) ciprofloxacin HCl 500 mg tablet 500 mg PO Q12H #14 tabs 10/23/22 Rx (Cipro) metronidazole 500 mg tablet 500 mg PO Q8H #21 tabs 10/23/22 Rx Hospital Stay Data Consultations 10/20/22 20:56 ED Decision to Admit Stat 10/21/22 08:11 Consult General Surgery Routine Diagnostic Imagining Performed 10/20/22 16:57 CT abd pelvis IV con only Stat Pending Results Patient Have Any Pending Studies at Discharge: No Discharge Instructions Given to Patient (Per Discharging Provider) Admitted with acute diverticulitis of large intestine. CT ABD:Diverticulitis at the junction of the descending-sigmoid colon with adjacent inflammatory changes and loculated extraluminal air. Findings consistent with perforated colonic diverticulitis. Continue two antibiotics (ciprofloxacin 500mg twice a day and metronidazole 500mg three times a day) for 7 more days. Take a daily probiotic for the next two weeks for GI health. Continue low fiber diet. Follow-up with GI for outpatient colonoscopy in 6-8 weeks. Total Time Total Time Spent Total Time Spent (In Minutes): 45 Supervising Physician Co-Signing Physician Notes Patient is seen and examined on day of discharge. States feeling well today. Denies any nausea, vomiting, chest pain, dyspnea, dizziness, abdominal pain. Tolerating low fiber diet. Afebrile today. On exam patient has no abdominal tenderness. Plan to be discharged home on oral antibiotics to complete the course for acute diverticulitis. Advised to follow-up with PCP in 1 week and surgery upon discharge.Blood cultures grew no growth to date. I personally reviewed the chart. I personally reviewed the record. Patient is interviewed and examined at bedside. Patient's care is coordinated with Dolly Pineda PA-C. Please refer to the documentation above for details of patient's presentation and for discussion of other issues.
== END 2022-10-23 12:49 | disposition home or self-care (01) | DRG 872 ==
LOC: ED 16:32 → 2S 22:06 → 3N 10-22 22:08